=== PATIENT | male | born 1970 | race Hispanic/Latino ===

== ENCOUNTER 2018-09-12 21:12 | Emergency (ER) | payer MEDICAID, OTHER ==
[2018-09-12] MEDS ORDERED: KETOROLAC TROMETHAMINE 30MG/ML ONE (23:02)
[2018-09-12] MEDS ORDERED: PREDNISONE 20 MG TABLET ONE (23:02)
[2018-09-12] MEDS ORDERED: ORPHENADRINE CITRATE 30 MG/ML ML ONE (23:02)
== END 2018-09-13 00:32 | disposition home or self-care (01) ==
LOC: EDH 21:12
DX: M54.42 Lumbago with sciatica, left side (principal); G89.29 Other chronic pain; F41.9 Anxiety disorder, unspecified
CPT/HCPCS: 74176; 96372 ×2; 99284; J1885; J2360

== ENCOUNTER → 2019-06-27 | Outpatient (CLI) | payer OTHER | END | disposition home or self-care (01) | LOC: RAH 12:20 | PROVIDERS: ATTEND Internal Medicine | DX: M47.816 Spondylosis without myelopathy or radiculopathy, lumbar region (principal); M25.78 Osteophyte, vertebrae; M16.0 Bilateral primary osteoarthritis of hip; I87.8 Other specified disorders of veins; M25.752 Osteophyte, left hip | CPT/HCPCS: 72082; 73502; 73562 ==

== ENCOUNTER 2019-09-23 18:44 | Emergency (ER) | payer OTHER ==
[2019-09-23] MEDS ORDERED: KETOROLAC TROMETHAMINE 60 MG/2 ML VIAL ONE (19:00)
[2019-09-23] MEDS ORDERED: DIAZEPAM 5 MG/ML 2 ML SYG ONE (19:45)
== END 2019-09-23 21:39 | disposition home or self-care (01) ==
LOC: EDH 18:44
DX: S43.085A Other dislocation of left shoulder joint, initial encounter (principal); F41.9 Anxiety disorder, unspecified; M19.90 Unspecified osteoarthritis, unspecified site; Z72.0 Tobacco use; W17.89XA Other fall from one level to another, initial encounter; Y93.89 Activity, other specified; Y92.89 Other specified places as the place of occurrence of the external cause; Y99.8 Other external cause status
CPT/HCPCS: 23650; 73030 ×2; 96372; 96374; 99284; J1885; J3360

== ENCOUNTER 2020-10-01 09:55 | Emergency (ER) | payer OTHER ==
[2020-10-01] MEDS ORDERED: HYDROCODONE/ACETAMINOPHEN 7.5/325 MG TAB ONE (11:33)
== END 2020-10-01 13:00 | disposition home or self-care (01) ==
LOC: EDH 09:55
DX: M13.852 Other specified arthritis, left hip (principal); G89.29 Other chronic pain; M25.552 Pain in left hip; F41.1 Generalized anxiety disorder; R50.9 Fever, unspecified; R05 Cough; R42 Dizziness and giddiness; Z20.822 Contact with and (suspected) exposure to COVID-19
CPT/HCPCS: 71045; 87426; 99284; U0003